=== PATIENT | male | born 1940 | race Caucasian/White ===

== ENCOUNTER → 2019-12-26 | Outpatient (CLI) | payer BC ==
[~2019-12-26] MED LIST: ACETAMINOPHEN325 M1 PO; GLUCOSAMINE &1 EAC1 PO; MULTIVITAMINS PO; RED YEAST RICE600 MG PO; SIMVASTATIN40 MG PO; ZYRTEC 10 MG TA10 M1 PO
== END ==
LOC: SJCVCIMAG 10:07
DX: I71.4 Abdominal aortic aneurysm, without rupture (principal); I72.3 Aneurysm of iliac artery; R00.1 Bradycardia, unspecified; R93.1 Abnormal findings on diagnostic imaging of heart and coronary circulation; I10 Essential (primary) hypertension; E78.5 Hyperlipidemia, unspecified; Z79.899 Other long term (current) drug therapy; Z87.891 Personal history of nicotine dependence

== ENCOUNTER → 2020-12-19 | Outpatient (CLI) | payer BC | LOC: LAB 12:51 | PROVIDERS: ATTEND Internal Medicine | DX: Z01.812 Encounter for preprocedural laboratory examination (principal); Z20.822 Contact with and (suspected) exposure to COVID-19 ==

== ENCOUNTER → 2020-12-24 | Outpatient (CLI) | payer BC ==
[~2020-12-24] VITALS: Ht 231.1 cm; Wt 89.4 kg
[~2020-12-24] MED LIST changes: +BENICAR20 MG PO; +COQ-1030 MG PO; +TOPROL XL25 MG PO
[2020-12-24 07:27] VITALS: BP 116/67
--- NOTE | 2020-12-24 12:09 | CATHLAB ---
[facility] [place] [address] INVASIVE PROCEDURE REPORT Name: RHODA MANE Room #: REG GINGER Singh.#: [id number] Admission: 12/24/20 Attend Phys: Srikanth Ramos MD Discharge: Date of : 44 Report #: [id number] THIS REPORT FOR: cc: Elmer Myers,Bakari Jiménez MD [facility] ~ APPROVED REPORT Study performed: 12/24/2020 07:34:09 Patient Details Patient Status: Out-Patient Room #: The patient is a 80 year-old male Event Personnel Bakari Elena Environmental Project Manager, Debra Su RN RN, Annie Gillette RT(R)() Monitor, Yasmin Munoz Procedures Performed Art Access - R femoral artery* Left Heart Cath w/or w/o Coronaries [id number] [facility] Hemostasis w/ Mynx 60820 Initial Mod Sed Same Phys/QHP Gr5y 207812 13766 Mod Sed Same Phys/QHP Ea 168291 Procedure Narrative The patient was brought electively to the Cardiac Catheterization Laboratory and was prepped and draped in a sterile manner. The Right Groin^ was infiltrated with 2% Lidocaine subcutaneous anesthesia. A PINNACLE 6FR Sheath #[id number] sheath was inserted into the RFA 6F^. Coronary angiography was performed using coronary diagnostic catheters. The right coronary system was accessed and visualized with a JR4 catheter. The left coronary system was accessed and visualized with a JL4 catheter. The left ventricle was accessed and visualized with a PIGTAIL catheter. The patient tolerated the procedure well and there were no complications associated with the procedure. Intraoperative Conscious Sedation Fentanyl 100 mcg Versed 1 mg Fluoro Time: 11.47 minutes Dose: DAP 51677.00 cGycm2 Contrast Type and Amount: Visipaque 91 ml Coronary Angiography The patient's coronary anatomy is right dominant. [facility] [place] [address] INVASIVE PROCEDURE REPORT Name: RHODA MANE [facility] [id number] Admission: 12/24/20 Attend Phys: Srikanth Ramos, Discharge: Date of : 44 Report #: [id number] Diagnostic Cath Left Main Normal left main LAD Normal left anterior descending Diagonal 1 Moderate sized single diagonal branch, angiographically normal Circumflex Large nondominant circumflex with 40-50% proximal stenosis OM1 Single, large first marginal branch with 40-50% proximal stenosis Right Coronary Dominant right coronary with 20-30% mid vessel plaquing 40-50% distal right coronary stenosis R PDA Normal posterior descending RPLV Normal posterior lateral branch Left Ventriculography The left ventricle is normal in size with normal contractility. The left ventricular ejection fraction is estimated to be 60-65%. Left ventricular wall motion abnormalities are not present. There is 1+ mitral insufficiency. Hemodynamics The aortic pressure is 127/54 mmHg with a mean of 79 mmHg. The left ventricular pressure is 128/6 mmHg with a mean of mmHg. The left ventricular end diastolic pressure is 18 mmHg. Conclusion 1. Normal global and regional left ventricular systolic function. EF 65% 2. Normal left main 3. Normal left anterior descending 4. Proximal 40-50% circumflex stenosis extending into a single large first marginal branch 5. Dominant right coronary with mild 20-30% mid vessel plaquing. 40-50% distal right coronary stenosis Recommendations Aggressive Medical Therapy <ELECTRONICALLY SIGNED> By: Bakari Elena MD, FACC 12/24/20 120 120 120 Bakari Elena MD, FACC /INF
== END | disposition home or self-care (01) ==
LOC: CATH 06:30
PROVIDERS: ATTEND Nuclear Medicine Nuclear Cardiology
DX: I25.10 Atherosclerotic heart disease of native coronary artery without angina pectoris (principal); I71.4 Abdominal aortic aneurysm, without rupture; I73.9 Peripheral vascular disease, unspecified; I70.1 Atherosclerosis of renal artery; K55.1 Chronic vascular disorders of intestine; I10 Essential (primary) hypertension; E78.5 Hyperlipidemia, unspecified; Z98.890 Other specified postprocedural states; Z79.899 Other long term (current) drug therapy; Z90.49 Acquired absence of other specified parts of digestive tract

== ENCOUNTER → 2021-04-26 | Outpatient (CLI) | payer BC ==
[~2021-04-26] MED LIST changes: +MULTI VITAMIN1 EACH PO
[2021-04-26 11:22] LABS: URINE BILIRUBIN NEGATIVE (Negative); URINE BLOOD 1+ (Negative); URINE CLARITY CLEAR; URINE COLOR YELLOW; URINE GLUCOSE-RANDOM* NEGATIVE (Negative); URINE KETONES NEGATIVE (Negative); URINE LEUKOCYTES-REFLEX NEGATIVE (Negative); URINE NITRITE-REFLEX NEGATIVE (Negative); URINE PROTEIN (DIPSTICK) NEGATIVE (Negative); URINE UROBILINOGEN 0.2 E.U./dl (0.2-1.0)
[2021-04-26 11:29] LABS: ABSOLUTE NEUTROPHILS 4.1 thou/uL (1.4-8.2); BASOPHILS 0.8 % (0.0-2.0); EOSINOPHILS 3.2 % (0.0-3.0); HEMATOCRIT 40.4 % (42.0-52.0); HEMOGLOBIN 13.6 gm/dL (14.0-18.0); LYMPHOCYTES 16.7 % (24.0-44.0); MCH 31.9 pg (26.0-34.0); MCHC 33.7 g/dL (28.0-37.0); MCV 94.8 fL (80.0-100.0); MONOCYTES 7.8 % (1.0-8.0); PLATELET COUNT 179 thou/uL (150-400); POLYS 71.5 % (36.0-66.0); RBC 4.26 mil/uL (4.50-6.00); RDW 12.7 % (10.5-14.5); WBC 5.8 thou/uL (4.0-11.0)
[2021-04-26 11:38] LABS: APTT 28.2 Seconds (24.5-32.8); PROTIME 10.9 Seconds (10.5-12.1)
[2021-04-26 11:40] LABS: ALBUMIN 3.9 g/dL (3.4-5.0); CALCIUM 9.3 mg/dL (8.5-10.1); CREATININE 1.4 mg/dL (0.7-1.3); POTASSIUM 4.7 mmol/L (3.5-5.1); TOTAL BILIRUBIN 0.6 mg/dL (0.2-1.0); TOTAL PROTEIN 6.6 g/dL (6.4-8.2)
[2021-04-26 12:09] LABS: BACTERIA-REFLEX 1-9 Few /HPF (None Seen); CASTS None Seen /LPF (None Seen); CRYSTALS None Seen /LPF (None Seen); SQUAMOUS 0-3 Few /LPF (0-3); URINE RBC 3-10 Few /HPF (NONE SEEN); URINE WBC-REFLEX None Seen /HPF (0-5)
--- NOTE | 2021-04-26 12:11 | EKG ---
[address] [place] [address] ELECTROCARDIOGRAM REPORT Name: ALHAJIRHODA ANNIE [facility] [id number] Admission: 04/26/21 Attend Phys: Bandar Ramirez MD Discharge: Date of : 44 Report #: [id number] [facility] Test Date: 2021-04-26 Test Time: 11:10:12 Pat Name: RHODA MANE Department: Room: Gender: Producer Director: Idalmis BECKFORD : 1940 Requested By: Bandar Ramirez Order Number: [id number] : Chase Vargas Measurements Intervals [place] Rate: 44 P: 50 SC: 189 QRS: 49 QRSD: 99 T: 17 QT: 457 QTc: 391 Interpretive Statements Sinus bradycardia Anteroseptal infarct, age indeterminate No previous ECG available for comparison Electronically Signed On 04-26-2021 12:11:42 CDT by Chase Vargas [email or web address] <ELECTRONICALLY SIGNED> By: Chase Vargas MD, [facility] 04/26/21 1211 1110 1110 Chase Vargas MD, FACC /EPI
== END ==
LOC: PAC 06:49
PROVIDERS: ATTEND Surgery Vascular Surgery
DX: Z01.818 Encounter for other preprocedural examination (principal); I77.810 Thoracic aortic ectasia; J98.4 Other disorders of lung

== ENCOUNTER → 2021-05-03 | Outpatient (CLI) | payer BC ==
[~2021-05-03] MED LIST changes: +ASA81BEC PO
== END ==
LOC: LAB 10:34
PROVIDERS: ATTEND Student in an Organized Health Care Education/Training Program
DX: Z01.812 Encounter for preprocedural laboratory examination (principal); Z20.822 Contact with and (suspected) exposure to COVID-19

== ENCOUNTER 2021-05-06 06:08 | Inpatient (IN) | payer BC ==
[2021-05-06] VITALS (23 sets, daily range): BP systolic 89–122; BP diastolic 47–61
[~2021-05-06] VITALS: Ht 182.9 cm; Wt 86.2 kg
[~2021-05-06 06:08] MED LIST changes: -ASA81BEC PO
--- NOTE | 2021-05-06 18:45 | NUR ---
report received from recovery room with pt arriving in icu #250 per icu bed, with cardene infusing at 5mg/hr post AAA endovascular stent placement. alert/oriented, cooperative, follows commands with all extremities and keeping bertha legs straight. SR with intermittent episodes of bradycardia down to 40's. when bradycardic, then radial jomar sbp decreased less than 130's and when SR then sbp would increase accordingly. bp varies from moment to moment. cardene titrated off and bp continued to vary. radial jomar with optimal waveform and reads about 10-20 mm/hg above nibp. bertha groin site- guaze and non-occulsive dressing dry/intact, without bleeding, bruising or hematoma. pedal pulses 1-2+. groin sites tender to touch and painful at times, fentanyl 25mcg iv given with decrease in discomfort to tolerable level. room air. tolerating ice chips, water then moderate amount of evening meal. adequate urine output per castillo. present, providing support.
[2021-05-07] VITALS (13 sets, daily range): BP systolic 89–139; BP diastolic 40–70
[2021-05-07 06:42] LABS: HEMATOCRIT 37.7 % (42.0-52.0); HEMOGLOBIN 12.2 gm/dL (14.0-18.0); MCHC 32.5 g/dL (28.0-37.0); MCV 95.5 fL (80.0-100.0); RBC 3.95 mil/uL (4.50-6.00); RDW 12.9 % (10.5-14.5); WBC 12.1 thou/uL (4.0-11.0)
[2021-05-07 06:52] LABS: CALCIUM 8.1 mg/dL (8.5-10.1); CREATININE 1.2 mg/dL (0.7-1.3)
[2021-05-07] MEDS ORDERED: ASA81BEC PO ×2 (12:12)
--- NOTE | 2021-05-07 13:10 | NUR ---
dc'd radial jomar with pressure held for 5 min, then acstillo dc'd, all well tolerated. pt up to chair with one assist for breakfast. initially in process of standing pt would experience brief sharp discomfort in left groin. encouraged pt to support groin site with his left hand as he stood, then to rise slowly and remain standing briefly "to let everything to settle into place". pt complied with request with brief discomfort resolved. activity and breakfast well tolerated. voided 200cc clear yellow urine per urinal. present providing support. pt ambulated in pt room, then ambulated out in collier, all well tolerated. when discharge instructions completed, pt discharged to home. verbalized understanding of discharge instructions. see computer discharge instructions for details.
--- NOTE | 2021-05-07 14:58 | O ---
[facility] [place] [address] OPERATIVE REPORT Name: RHODA MANE Room #: 250-P ADM IN M.R.#: [id number] Admission: 05/06/21 Attend Phys: Bandar Ramirez MD Discharge: Date of : 44 Report #: [id number] THIS REPORT FOR: cc: Elmer Myers,Elmer River,Bandar Fung MD ~ cc: Srikanth Ramos MD DATE OF SERVICE: 05/06/2021 PREOPERATIVE DIAGNOSIS: Abdominal aortic aneurysm. POSTOPERATIVE DIAGNOSIS: Abdominal aortic aneurysm. OPERATION: Stent graft implant for abdominal aortic aneurysm with intraoperative arteriograms. SURGEONS: Bandar Ramirez and Dr. Srikanth Ramos. ANESTHESIA: General. INDICATIONS: The patient is a 80-year-old with a large infrarenal abdominal aortic aneurysm. This appeared on CT scan to be suitable for stent graft implant. FINDINGS AND TECHNIQUE: After general anesthesia was established, incisions were made in each groin to expose the common femoral artery. 10,000 units of heparin were given. Each femoral artery was entered with the arterial needle followed by a 6 Danish sheath and then through this sheath, a J-wire was passed with a Berenstein catheter used for exchange to a Kadie wire. Over the Kadie wire in each side, a femoral cutdown was performed and on the right side, the 18-Danish sheath was placed and on the left side, the 12 Danish sheath was placed. Through the 12 Danish sheath, a visceral catheter was placed in the lowest, the right renal artery and through the Danish sheath on the left the main component was placed. The main component was a 32 x 14 mm x 14 cm device and this was placed just below the origin of the right renal artery. The device was fully deployed and through the contralateral limb from the left side, the contralateral gate was cannulated. Good position in the gate was ascertained using a pigtail catheter and the spin technique. [facility] [address] [place] [address] OPERATIVE REPORT Name: RHODA MANE Room #: [address] [place] [address] [place] M.R.#: [id number] Admission: 05/06/21 Attend Phys: Bandar Ramirez MD Discharge: Date of : 44 Report #: [id number] The pigtail was exchanged for the contralateral limb. A retrograde arteriogram was taken to illustrate the takeoff of the hypogastric and a 20 mm x 11.5 device was selected and this was deployed in the contralateral limb to land just above the left hypogastric artery. On the right side, the graft was extended with a 20 x 9.5 device. An arteriogram was also taken to illustrate the right hypogastric takeoff. When all of the devices had been deployed, the balloon was used to fully expand all of the areas of the graft including the area for active fixation of the proximal neck and the overlap areas in the contralateral gate and in the limbs. When the device had been fully expanded, the pigtail catheter was replaced and final arteriogram was taken. This showed no extravasation of contrast and no evidence of endoleak. With that, the dilators were replaced into the sheaths and the sheaths and dilators were removed and then the guidewires were removed. On each side, the cutdown was repaired with interrupted 6-0 Prolene. Flow was reestablished. Protamine was used to reverse the heparin given earlier. When hemostasis was satisfactory, the incisions were closed in layers. The patient was taken to the recovery area in good condition having tolerated the procedure well. All counts were reported as correct. <ELECTRONICALLY SIGNED> By: Bandar Ramirez MD 05/07/21 1458 1913 1950 Bandar Ramirez MD /nt
== END 2021-05-07 13:10 | disposition home or self-care (01) | DRG 269 ==
LOC: OR → TBA 06:08 → ICU 06:08 → OR 10:32 → EDSTATUS 12:26 → OR 12:33 → ICU 13:49 → PRE 14:23 → ICU 05-07 13:10
PROVIDERS: ADMIT Surgery Vascular Surgery; ATTEND Surgery Vascular Surgery
PROC: B4181ZZ Fluoroscopy of Bilateral Renal Arteries using Low Osmolar Contrast (ICD-10-PCS; principal; 2021-05-06)
PROC: 04V03DZ Restriction of Abdominal Aorta with Intraluminal Device, Percutaneous Approach (ICD-10-PCS; principal; 2021-05-06)
DX: I71.4 Abdominal aortic aneurysm, without rupture (principal); I10 Essential (primary) hypertension; E78.5 Hyperlipidemia, unspecified; I25.10 Atherosclerotic heart disease of native coronary artery without angina pectoris; I65.29 Occlusion and stenosis of unspecified carotid artery; E78.00 Pure hypercholesterolemia, unspecified; Z79.899 Other long term (current) drug therapy; Z90.49 Acquired absence of other specified parts of digestive tract
CPT/HCPCS: 10078; 10204; 47375; 48889; 50010; 50101; 50386; 50455; 52287; 54118; 56524; 56526; 56531; 56668; 56760; 57093; 62110; 62900; 65090; 70005

== ENCOUNTER → 2021-06-17 | Outpatient (CLI) | payer BC ==
[~2021-06-17] MED LIST changes: +ASA81BEC PO
== END ==
LOC: SJCVCIMAG 08:06
PROVIDERS: ATTEND Internal Medicine
DX: I65.23 Occlusion and stenosis of bilateral carotid arteries (principal); I10 Essential (primary) hypertension; E78.00 Pure hypercholesterolemia, unspecified; E78.5 Hyperlipidemia, unspecified; Z79.899 Other long term (current) drug therapy